=== PATIENT | female | born 1965 | race Two or more races ===

== ENCOUNTER 2024-07-03 21:39 | Emergency (ER) | payer MEDICAID, SELFPAY ==
[2024-07-03 21:40] VITALS: BMI 27.3
[2024-07-03 21:51] VITALS: BP 144/78; PULSE 87; RESP 20; TEMP 36.8; O2SAT 97
--- NOTE | 2024-07-03 22:05 | XR_ITS ---
Examination: Venous duplex lower extremity sonogram, bilateral. Date and time of exam: July 03, 2024 11:10 PM INDICATIONS: Bilateral leg pain and swelling several years worse recently Technique: Multiple sonographic images of the deep venous system have been obtained. B-mode/2-D grayscale imaging of vascular structures and Doppler spectral analysis (waveforms) and color performed Both legs are examined. Findings: Deep venous systems do not demonstrate abnormal echogenicity. All visualized deep veins exhibit compressibility. All visualized deep veins exhibit augmentation. Impression: Negative for deep vein thrombosis
--- NOTE | 2024-07-03 22:05 | EKG_ITS ---
[facility] Test Date: 2024-07-03 Pat Name: CONNIE BULL Department: Room: - Gender: Female Staffing Director: : [id number] Requested By: Maico Zamora Order Number: [id number] Reading MD: Maico Zamora Measurements Intervals [employer] [facility] Rate: 77 P: 64 NM: 175 QRS: 15 QRSD: 92 T: 77 QT: 385 QTc: 437 Interpretive Statements SINUS RHYTHM POSSIBLE LEFT ATRIAL ENLARGEMENT [-0.1mV P-WAVE IN V1/V2] POSSIBLE ANTERIOR MYOCARDIAL INFARCTION , OF INDETERMINATE AGE [30 ms Q WAVE IN V3/V4, OR R < 0.2 mV IN V4] No previous ECG available for comparison /store/S0/[id number].pdf
--- NOTE | 2024-07-03 22:08 | PD.EDRME ---
Rapid Medical Screening Exam RME Arrival date/time: 07/03/24 21:39 58 yo f present to ed for c/o of chest pain, sob for 2 weeks I have greeted and performed a focused initial assessment of this patient. A comprehensive ED assessment and evaluation of the patient, analysis of all test results, and completion of the medical decision making process will be conducted by additional ED providers. Chief Complaint: Headache Time Seen by Provider: 07/03/24 21:42 Vital signs: Vital Signs Temperature 98.3 F 07/03/24 21:51 Pulse Rate 87 07/03/24 21:51 Respiratory Rate 20 07/03/24 21:51 Blood Pressure 144/78 H 07/03/24 21:51 Pulse Oximetry (%) 97 07/03/24 21:51 Oxygen Delivery Method Room Air 07/03/24 21:51
[2024-07-03 23:01] LABS: Basophils % (Auto) 0 % (0-2.5); Eosinophils % (Auto) 0 % (0-10); Hematocrit 41.2 % (36.0-46.0); Hemoglobin 13.7 g/dL (12.0-16.0); Immature Granulocytes % (Auto) 0 % (0-0); Immature Granulocytes Auto 0.02 Thou/mm3 (0.00-0.00); Lymphocytes # (Auto) 1.9 Thou/mm3 (1.0-4.8); Lymphocytes % (Auto) 21 % (10-50); Mean Corpuscular HGB Conc 33.3 g/dl (31.0-37.0); Mean Corpuscular Hemoglobin 30.6 pg (25.0-35.0); Mean Corpuscular Volume 92 fL (80-100); Monocytes % (Auto) 11 % (0-12); Neutrophils # (Auto) 6.1 Thou/mm3 (1.8-7.7); Neutrophils % (Auto) 67 % (37-80); Nucleated Red Blood Cell % 0 /100 WBC (0); Platelet Count 202 Thou/mm3 (140-440); RDW Standard Deviation 45.2 fL (36.4-46.3); Red Blood Count 4.47 Miln/mm3 (4.00-5.20); White Blood Count 9.1 Thou/mm3 (3.6-11.0)
[2024-07-03 23:41] LABS: B-Type Natriuretic Peptide 36 pg/mL (0-100)
[2024-07-03 23:42] LABS: Alanine Aminotransferase 15 U/L (10-49); Albumin, Serum 4.3 gm/dL (3.5-5.0); Alkaline Phosphatase 146 U/L (46-116); Anion Gap 6 (7-16); Aspartate Amino Transferase 19 U/L (0-34); BUN/Creatinine Ratio 8 Ratio (12-20); Bilirubin,Total 0.4 mg/dL (0.3-1.2); Blood Urea Nitrogen 9 mg/dL (9-23); Calcium 9.1 mg/dL (8.3-10.6); Calcium (Corrected) 9.1 mg/dL (8.5-10.1); Carbon Dioxide 28.2 mMol/L (20.0-31.0); Chloride 107 mMol/L (98-107); Creatinine (Component) 1.1 mg/dL (0.6-1.3); Globulin 2.2 gm/dL (2.3-3.5); Glucose 95 mg/dL (74-106); Lipase 73 U/L (12-53); Osmolality,Calculated 279 (275-295); Potassium 4.3 mMol/L (3.4-5.1); Sodium 141 mMol/L (136-145); Total Protein 6.5 gm/dL (5.7-8.2); Troponin I < 0.020 ng/mL (0.0-0.045); eGFR 59 See Note
[2024-07-03 23:48] VITALS: BP 151/79; PULSE 72; RESP 17; TEMP 36.7; O2SAT 100
--- NOTE | 2024-07-04 01:27 | PD.EDRME ---
Rapid Medical Screening Exam RME Arrival date/time: 07/03/24 21:39 07/03/24 21:39 58 yo f present to ed for c/o of chest pain, sob for 2 weeks I have greeted and performed a focused initial assessment of this patient. A comprehensive ED assessment and evaluation of the patient, analysis of all test results, and completion of the medical decision making process will be conducted by additional ED providers. Chief Complaint: Headache Time Seen by Provider: 07/03/24 21:42 Vital signs: Vital Signs Temperature 98.3 F 07/03/24 21:51 Pulse Rate 87 07/03/24 21:51 Respiratory Rate 20 07/03/24 21:51 Blood Pressure 144/78 H 07/03/24 21:51 Pulse Oximetry (%) 97 07/03/24 21:51 Oxygen Delivery Method Room Air 07/03/24 21:51 RME Narrative: 07/03/24 21:39 58 yo f present to ed for c/o of chest pain, sob for 2 weeks I have greeted and performed a focused initial assessment of this patient. A comprehensive ED assessment and evaluation of the patient, analysis of all test results, and completion of the medical decision making process will be conducted by additional ED providers.
--- NOTE | 2024-07-04 01:28 | EDNOTE_ITS ---
ED Chest Pain RME/HPI General Chief Complaint: Headache Stated Complaint: SORENESS IN CHEST, MENARD, LEGS FEEL HEAVY Time Seen by Provider: 07/03/24 21:42 Source: patient Arrival date/time: 07/03/24 21:39 Mode of arrival: ambulatory Limitations: no limitations RME / HPI RME / HPI narrative: 07/03/24 21:39 58 yo f present to ed for c/o of chest pain, sob for 2 weeks I have greeted and performed a focused initial assessment of this patient. A comprehensive ED assessment and evaluation of the patient, analysis of all test results, and completion of the medical decision making process will be conducted by additional ED providers. Dr. Goldberg?s Main ED Evaluation: 58-year-old female presents to the ED with a 2-week history of chest soreness and progressive heaviness in both lower extremities. She also reports a persistent headache. She denies any recent trauma, heavy lifting, or exertional activity. The chest discomfort is described as soreness rather than pressure or sharp pain. She also reports shortness of breath. No recent travel or immobility. She smokes daily. Related Data Allergies Allergy/AdvReac Type Severity Reaction Status Date / Time No Known Allergies Allergy Verified 08/07/22 15:40 Review of Systems Review of Systems Systems Reviewed: All systems reviewed, normal except as documented Past Medical History Past Medical History CARDIAC: Positive Hypertension; Negative Congestive Heart Failure RESPIRATORY: Negative Chronic Obstructive Pulmonary Disease (COPD) GENITOURINARY: Negative Renal Disease ENDOCRINE: Negative Diabetes Mellitus Type 1 or Diabetes Mellitus Type 2 Social History SMOKING STATUS: Current every day smoker ED Exam General Limitations: Present no limitations General appearance: Present alert and in no apparent distress Head Head exam: Present atraumatic Eye Eye exam: Present normal appearance, PERRL and EOMI ENT ENT exam: Present normal exam, normal oropharynx and mucous membranes moist Neck Neck exam: Present normal inspection, full ROM and trachea midline Chest Chest inspection: Present normal inspection and symmetric chest wall rise Respiratory Respiratory exam: Present normal lung sounds bilaterally Cardiovascular Cardiovascular exam: Present regular rate, normal rhythm and normal heart sounds Abdominal Exam Abdominal exam: Present soft and normal bowel sounds Extremities Exam Extremities exam: Present normal inspection and full ROM Back Exam Back exam: Present normal inspection and full ROM Neurological Exam Neurological exam: Present alert, oriented X3 and CN II-XII intact Psychiatric Psychiatric exam: Present normal affect and normal mood Skin Skin exam: Present warm, dry, intact and normal color Course Quality Measures none Orders Category Date Time Status Bedside Influenza A&B Antigen Test NOW Care 07/03/24 22:[address] Screening NOW Care 07/04/24 01:50 Active EKG (ED ONLY) *Do not use* NOW Care 07/03/24 22:[address] angio chest Stat Exams 07/04/24 01:50 Taken EKG (ED Only) Stat Exams 07/03/24 22:05 Draft US venous doppler LE BI Stat Exams 07/03/24 22:05 Completed BNP [B-Type Natriuretic Peptide] Stat Lab 07/03/24 22:41 Completed CBC Stat Lab 07/03/24 22:44 Completed CMP [Comprehensive Metabolic Panel] Stat Lab 07/03/24 22:44 Completed Lipase Stat Lab 07/03/24 22:44 Completed PT [Prothrombin Time with INR] Stat Lab 07/04/24 02:26 Completed PTT [Partial Thromboplastin Time] Stat Lab 07/04/24 02:26 Completed Troponin I Stat Lab 07/03/24 22:44 Completed Troponin I Stat Lab 07/04/24 02:26 Completed Sodium Chloride 0.9% 1000 ml [Ns] 1,000 ml Med 07/04/24 02:25 Discontinued IV 999 mls/hr Vital Signs Vital signs: Vital Signs Temperature 98.3 F 07/03/24 21:51 Pulse Rate 87 07/03/24 21:51 Respiratory Rate 20 07/03/24 21:51 Blood Pressure 144/78 H 07/03/24 21:51 Pulse Oximetry (%) 97 07/03/24 21:51 Oxygen Delivery Method Room Air 07/03/24 21:51 Chest Pain MDM Narrative MDM Narrative:: 58-year-old female presents to the ED with a 2-week history of chest soreness and progressive heaviness in both lower extremities. Venous duplex lower extremity sonogram, bilateral, negative for DVT EKG, personally interpreted by me, taken at 2209: Normal sinus rhythm at a rate of 77 bpm. T-wave inversions noted in aVL and V2. No ST elevations or depressions observed. No previous ECG for comparison. Repeat troponin negative Differntial diagnoses include: PE, atypical chest pain, dehydration, electrolyte abnormality, PNA 0600 Care signed out to [facility]. Past medical, surgical, social and family history reviewed. Vitals and home medications reviewed. Results and treatment plan discussed. They will assume the care of the patient at this time and will follow the patient, pending CTA results and final disposition. Scribe Attestation: I, Car Umanzor, am scribing for and in the presence of Dr. Goldberg. Provider Notation: Although this document has been carefully reviewed, there may still be some phonetic and other typographical errors. These errors are purely grammatical due to imperfections in the software program and should not be construed in any way to compromise the substance of the patient's medical care during this visit. Patient data External records reviewed:: [facility] previous records Clinical information provided by:: patient Social determinants that could affect healthcare access:: none Patient has the following chronic illnesses:: HTN How is presenting disease/condition affected by chronic disease/condition?: un effected by Evaluation data The following diagnostics were reviewed and interpreted by me:: lab results, radiology exam(s) and EKG tracing(s) Lab and/or radiology exams considered but not ordered:: na Interpretation Summary: Examination: Venous duplex lower extremity sonogram, bilateral. Date and time of exam: July 03, 2024 11:10 PM INDICATIONS: Bilateral leg pain and swelling several years worse recently Technique: Multiple sonographic images of the deep venous system have been obtained. B-mode/2-D grayscale imaging of vascular structures and Doppler spectral analysis (waveforms) and color performed Both legs are examined. Findings: Deep venous systems do not demonstrate abnormal echogenicity. All visualized deep veins exhibit compressibility. All visualized deep veins exhibit augmentation. Impression: Negative for deep vein thrombosis Dictated By: Kael Jaramillo MD Medications / Prescriptions Medications or Prescriptions considered but not ordered:: na Medication administrations:: Medication Administration History Discontinued Medications Sodium Chloride (Ns) 1,000 mls @ 999 mls/hr IV .Q1H1M ONE Stop: 07/04/24 03:25 Last Infusion: 07/04/24 03:40 Dose: Infused Documented By: Admin: 07/04/24 02:36 Dose: 999 mls/hr Documented By: CCT as above, if any Consultations Consultation(s) initiated? (list below): No Diagnosis Chest Pain Differential Diagnosis: other (see MDM narrative) Most likely diagnosis given after review of the tests above:: see clinical impression Admission Indicated Admission indicated?: not indicated Explain why admission is indicated or not indicated:: signed out to oncoming dayshift provider pending CTA results and final dispo Admission Request Was there a request for admission?: No Disposition Plan Disposition Plan: other (specify) (signed out to oncoming dayshift provider pending CTA results and final dispo) Discharge Plan Plan Patient condition on transfer: Stable Prescriptions/Referrals Referrals: Kael Rodas PA-C [Primary Care Provider] - In 1 week Problem List Clinical Impression: Atypical chest pain Patient/Caregiver Discharge Instructions Education Materials: ED Chest Pain, Noncardiac Additional Instructions: Return to the emergency department for worsening symptoms or any other concerns. You can take jlsy-pir-idyaple Tylenol as needed every 4 hours. Print Language: [place]
--- NOTE | 2024-07-04 01:50 | XR_ITS ---
Examination: CTA chest with intravenous contrast 2-D reconstructions 3-D reconstructions, vascular Date and time of exam: July 04, 2024, 0412 hours INDICATIONS: Worsening shortness of breath being 2 weeks ago CTDI: vol (mGy) 14.94 DLP: (mGycm) 364 Technique: Multiple axial sections of the thorax have been obtained. 3 mm slice thickness, from below the hemidiaphragms to above the apices of the lungs. Mediastinal and lung density settings have been obtained. 2-D sagittal and coronal reconstructions. 3-D angiographic renderings, 3-D volume renderings, 3D post processing, vascular maximum intensity projections obtained. Contrast administered is 100 cc Isovue 370. Intravenous Low dose protocols were performed. One or more of the following dose reduction techniques were used; automated exposure control, adjustment of the mA and/or KV according to patient size, use of iterative reconstruction technique. Findings: AP dimension ascending thoracic aorta 35 mm Pulmonary artery segments are not enlarged No pulmonary artery filling defects No paratracheal tracheobronchial or bronchopulmonary adenopathy No pneumonia, pulmonary edema or pleural disease 10 mm left lobe liver cyst Contracted gallbladder Spleen not enlarged No pancreatic mass Moderate bilateral renal parenchymal scar formation No hydronephrosis IMPRESSION: Negative for pulmonary artery emboli. No pneumonia, pulmonary edema or pleural disease
[2024-07-04] MEDS: SODIUM CHLORIDE 0.9% 1000 ML 1,000 ML 999 ML IV (02:36)
[2024-07-04 02:59] LABS: Prothrombin Time 10.6 Seconds (9.0-12.2)
[2024-07-04 03:01] LABS: Troponin I < 0.020 ng/mL (0.0-0.045)
[2024-07-04 05:32] VITALS: BP 172/97; PULSE 75; RESP 16; TEMP 36.4; O2SAT 99
--- NOTE | 2024-07-04 06:32 | PD.EDADDENDU ---
Emergency Room Addendum Addendum Narrative: 0600: Care assumed from Dr. Goldberg, the previous shift emergency physician. Past medical, surgical, social and family history reviewed. Vitals and home medications reviewed. I will assume the care of the patient at this time, pending CTA results and final disposition. Please refer to the emergency department record for history and examination from initial visit.? Physical exam by me shows patient under no acute distress at this time. 0859: Patient remains clinically stable throughout the emergency department visit. Re-assessment at the time of disposition demonstrates that the patient is in no acute distress. We reviewed all the results, analysis, and treatment plans. Patient is amenable to discharge. Strict return precautions were outlined. Patient was discharged in stable condition. Diagnosis: - Atypical chest pain RADIOLOGY Procedure(s): CT angio chest Accession Number(s): [id number] cc: Kael Jaramillo MD; Laverne Goldberg MD; Kael Rodas PA-C~ Examination: CTA chest with intravenous contrast 2-D reconstructions 3-D reconstructions, vascular Date and time of exam: July 04, 2024, 0412 hours INDICATIONS: Worsening shortness of breath being 2 weeks ago CTDI: vol (mGy) 14.94 DLP: (mGycm) 364 Technique: Multiple axial sections of the thorax have been obtained. 3 mm slice thickness, from below the hemidiaphragms to above the apices of the lungs. Mediastinal and lung density settings have been obtained. 2-D sagittal and coronal reconstructions. 3-D angiographic renderings, 3-D volume renderings, 3D post processing, vascular maximum intensity projections obtained. Contrast administered is 100 cc Isovue 370. Intravenous Low dose protocols were performed. One or more of the following dose reduction techniques were used; automated exposure control, adjustment of the mA and/or KV according to patient size, use of iterative reconstruction technique. Findings: AP dimension ascending thoracic aorta 35 mm Pulmonary artery segments are not enlarged No pulmonary artery filling defects No paratracheal tracheobronchial or bronchopulmonary adenopathy No pneumonia, pulmonary edema or pleural disease 10 mm left lobe liver cyst Contracted gallbladder Spleen not enlarged No pancreatic mass Moderate bilateral renal parenchymal scar formation No hydronephrosis IMPRESSION: Negative for pulmonary artery emboli. No pneumonia, pulmonary edema or pleural disease Dictated By: Kael Jaramillo MD
--- NOTE | 2024-07-04 07:29 | PC.NURSE ---
PT UP TO BR AT THIS TIME, STEADY GAIT NOTED, DENIES ANY PAIN OR DISCOMFORT. PT UPDATED ON CT PENDING, WILL CONTINUE W/POC.
[2024-07-04 08:07] VITALS: BP 168/90; PULSE 71; RESP 18; TEMP 36.4; O2SAT 99
== END 2024-07-04 09:18 | disposition home or self-care (01) ==
PROVIDERS: Emergency Medicine; Physician Assistant; Emergency Provider Emergency Medicine; PCP Physician Assistant Medical
DX: R07.89 Other chest pain (principal); R51.9 Headache, unspecified; M79.605 Pain in left leg; M79.604 Pain in right leg
CPT/HCPCS: 36415; 71275; 80053; 83690; 83880; 84484; 85025; 85610; 85730; 87400; 93005; 93970; 96360; 99285; A4649; J7030; Q9967